=== PATIENT | male | born 1975 | race Caucasian/White ===

== ENCOUNTER 2019-04-01 10:27 | Inpatient (IN) | payer BC, OTHER ==
[~2019-04-01] VITALS: Ht 170.2 cm; Wt 110.7 kg
--- NOTE | ~2019-04-01 | EEG ---
[facility] [place] [address] ELECTROENCEPHALOGRAM Name: CAMMIE ENRIQUEZ Room #: 450-P ADM IN M.R.#: [id number] Admission: 04/01/19 Attend Phys: Chandra Esqueda Discharge: Date of : 79 Report #: [id number] THIS REPORT FOR: //name// CC: AISLINN physician/PCP Isha Li DATE OF SERVICE: 04/02/2019 This patient is being evaluated for seizure. EEG was done by placing the electrode by standard 10-20 system of electrode placement. Both referential and sequential montages were used for recording. Background activity in this patient's EEG is about 8-9 Hz and 30 microvolt. The patient went to sleep that is associated with bilaterally symmetrical sleep spindle and vertex sharp waves. Throughout the record, no active epileptiform activity was noted. IMPRESSION: This patient's EEG is intermixed with theta range slowing on both sides, but no active epileptiform activity was noticed. Thank you very much for this referral. By: [id number] Randall Oden MD /nt
[~2019-04-01 10:27] MED LIST: KEPPRA 500 MG500 M1 PO; METFORMIN HCL500 MG PO; NOHOMEMEDICATIONS; OSELB75 PO; TYLENOL325 MG PO
[2019-04-01 10:36] VITALS: BP 127/69
[2019-04-01] MEDS ORDERED: KEPPRA XR500 MG PO (11:02)
[2019-04-01 11:12] LABS: ABSOLUTE NEUTROPHILS 12.4 thou/uL (1.4-8.2); BASOPHILS 0.4 % (0.0-2.0); EOSINOPHILS 0.1 % (0.0-3.0); HEMATOCRIT 49.1 % (42.0-52.0); HEMOGLOBIN 15.9 gm/dL (14.0-18.0); LYMPHOCYTES 12.4 % (24.0-44.0); MCH 30.7 pg (26.0-34.0); MCHC 32.5 g/dL (28.0-37.0); MCV 94.5 fL (80.0-100.0); MONOCYTES 8.4 % (1.0-8.0); PLATELET COUNT 210 thou/uL (150-400); POLYS 78.7 % (36.0-66.0); RBC 5.19 mil/uL (4.50-6.00); RDW 13.1 % (10.5-14.5); WBC 15.8 thou/uL (4.0-11.0)
[2019-04-01 11:13] LABS: CALCIUM 9.9 mg/dL (8.5-10.1); CREATININE 1.8 mg/dL (0.7-1.3); POTASSIUM 3.5 mmol/L (3.5-5.1)
[2019-04-01 11:15] LABS: URINE BILIRUBIN NEGATIVE (Negative); URINE BLOOD 3+ (Negative); URINE CLARITY CLEAR; URINE COLOR YELLOW; URINE GLUCOSE-RANDOM* 2+ (Negative); URINE KETONES 1+ (Negative); URINE LEUKOCYTES-REFLEX NEGATIVE (Negative); URINE NITRITE-REFLEX NEGATIVE (Negative); URINE PROTEIN (DIPSTICK) 1+ (Negative); URINE SPECIFIC GRAVITY >= 1.030 (1.005-1.035); URINE UROBILINOGEN 0.2 E.U./dl (0.2-1.0)
[2019-04-01 11:18] LABS: ALBUMIN 4.7 g/dL (3.4-5.0); TOTAL BILIRUBIN 0.2 mg/dL (<0.1-1.0); TOTAL PROTEIN 8.5 g/dL (6.4-8.2)
[2019-04-01 12:01] LABS: CASTS None Seen /LPF (None Seen); SQUAMOUS None Seen /LPF (0-3)
[2019-04-01 12:02] LABS: BACTERIA-REFLEX 1-9 Few /HPF (None Seen); CRYSTALS None Seen /LPF (None Seen); URINE RBC 0-2 Rare /HPF (0-2); URINE WBC-REFLEX 0-5 Rare /HPF (0-5)
[2019-04-01 13:46] VITALS: BP 136/91
[2019-04-01 14:25] VITALS: BP 116/71
[2019-04-01 14:41] VITALS: BP 147/87
--- NOTE | 2019-04-01 18:16 | NUR ---
Patient arrived to [address] [place] [address] from ER approx. 1430 this afternoon. Patient arrived on cart with and daughter at bedside. Pt appeared to be very weak and restless/uncomfortable. Tele monitor applied and maintenance fluids started. History discussed with patient and at beside. Isolation precautions in place for influenza; family is cooperative. Seizure precautions in place. Fall precautions in place. Low grade fever identified-tylenol given per orders. When temp rechecked after tylenol admin, temp increased from 99.[address] Bhatt called and said ice packs/cold towels is all we can do at this time. Patient currently using both-will recheck temp later. Family at bedside and supposed to bring keppra bottle to confirm keppra dosage at home. Will continue to monitor.
[2019-04-01 19:11] VITALS: BP 133/80
[2019-04-01 23:53] VITALS: BP 123/72
--- NOTE | 2019-04-02 03:23 | NUR ---
ASSUMED PT CARE AROUND 1900. PT WAS VERY DROWSY UPON INITIAL ASSESSMENT. HE WOULD FOLLOW COMMANDS AND ARROUSE, BUT WAS SLOW TO ANSWER QUESTIONS. WHEN REASSESSED DURING THE NIGHT, PT HAS BEEN MORE EASILY ARROUSABLE. VSS. KEPPRA DOSE INCREASED TO HOME DOSE PER [employer] ORDER. NO SEIZURE ACTIVITY NOTED SO FAR THIS SHIFT. SEIZURE PRECAUTIONS IN PLACE. FALL PRECAUTIONS IN PLACE. PT STILL HAVING SOME CASEY-GRADE FEVERS. WILL CONTINUE TO MONITOR CLOSELY. PROGRESSING SLOWLY TOWARD POC GOALS.
[2019-04-02 04:16] VITALS: BP 134/84
[2019-04-02 07:45] VITALS: BP 103/59
[2019-04-02 11:06] LABS: MAGNESIUM 2.1 mg/dL (1.8-2.4)
--- NOTE | 2019-04-02 11:45 | HC ---
[facility] [place] [address] CONSULTATION Name: CAMMIE ENRIQUEZ Room #: 355-P ADM IN M.R.#: [id number] Admission: 04/01/19 Attend Phys: Isha Li MD Discharge: Date of : 79 Report #: [id number] THIS REPORT FOR: //name// CC: AISLINN physician/PCP Isha Li DATE OF SERVICE: 04/02/2019 HISTORY OF PRESENT ILLNESS: This is a 43-year-old male patient who was evaluated by me for seizures. The patient had multiple seizures yesterday, but he is feeling better today. He has a longstanding history of seizures. He follows up with an epileptologist, Dr. Rey at [facility]. He is on 2500 mg of long-acting Keppra and he takes it once daily. Last seizure was in Liliana or September of the last years and that happened because he has run out of his Keppra. Prior to that, seizure was a few years ago. The patient indicated that he did not have any seizure for a long time until had it in September because of running out of the medication. At one time, he used to be on Dilantin. They changed to Keppra. REVIEW OF SYSTEMS: Indicate that the patient had a question of viral meningitis according to the records. He does have multiple seizures. He is on metformin. He does appear to have kidney dysfunction. This was his relevant 14-point review of system. PAST MEDICAL HISTORY: Positive for seizure, which is long-standing. FAMILY HISTORY: Negative for any early age stroke. SOCIAL HISTORY: He says he does drink and smoke, but "not very often." PHYSICAL EXAMINATION: NEUROLOGIC: The patient's examination indicates he is alert. He is responsive. He can talk. His memory is diminished, but he is still able to remember what month and date is. Cranial nerve examination 2-12 looks unremarkable. His strength, sensation, reflexes and tone is symmetrical. There is no cerebellar sign. I could not look at the patient's fundus. There is no meningeal sign in this patient. CARDIAC: Unremarkable. LUNGS: No respiratory difficulty was noticed. Pulses are palpable. VITAL SIGNS: Blood pressure is 103/59, respirations 24, pulse is 89, temperature is 100. IMPRESSION: It looks like this patient has a prior history of seizure, which is longstanding. His seizures are usually controlled with the medication, but he has a pretty significant decompensation. I suspect that is because of viral illness, but even that is somewhat unusual. As there is some reference to viral [address] [address] CONSULTATION Name: CAMMIE ENRIQUEZ Room #: 355-P [facility] IN ..#: [id number] Admission: 04/01/19 Attend Phys: Isha Li MD Discharge: Date of : 79 Report #: [id number] meningitis in the computer, but the patient does not provide any good history. I will suggest asking ID to see him because his infection needs to be tightly controlled if that was the trigger. I will increase his Keppra to about 3000 mg daily, but presently his kidney function is somewhat abnormal and Keppra is excreted by kidneys, so I will probably leave him on the same dose, but I think we will ultimately adjusted to 3000 mg daily depending upon his EEG. Since there in the pattern of seizures, I will suggest doing an MRI in this patient; although, most likely it is going to be okay. I personally do not think there is any evidence of meningitis in this patient, but because of the prior history and the patient is running temperature. We will ask ID and see what their opinion is on this. Thank you very much for this referral and I discussed that with the patient in detail and subsequently called the patient's and discussed with her in detail. This patient cannot drive for at least 6 months because of the state laws and should take other seizure precautions, which were discussed with him. <ELECTRONICALLY SIGNED> By: Randall Oden MD 04/02/19 [id number] Randall Oden MD /nt
--- NOTE | 2019-04-02 17:01 | NUR ---
ASSUMED PATIENT CARE AT 0700, A/O X4. NO SEIZURE NOTED. UP AD BRIDGETT. LOW GRADE TEMP. PROGRESSING TOWARDS POC GOALS. WILL TRANSFER TO [facility] SOON.
[2019-04-02 17:05] VITALS: BP 122/84
[2019-04-02 20:15] VITALS: BP 139/83
[2019-04-03 06:14] LABS: HEMATOCRIT 43.6 % (42.0-52.0); HEMOGLOBIN 14.6 gm/dL (14.0-18.0); MCH 30.8 pg (26.0-34.0); MCHC 33.4 g/dL (28.0-37.0); MCV 92.1 fL (80.0-100.0); PLATELET COUNT 149 thou/uL (150-400); RBC 4.74 mil/uL (4.50-6.00); WBC 6.1 thou/uL (4.0-11.0)
--- NOTE | 2019-04-03 06:16 | NUR ---
PROGRESS PT A/O X4 , VSS SLIGHT TEMP 100.4 AT BEGINNING OF SHIFT 100.4 HYDROCODONE GIVEN FOR PAIN AND FEVER. WORKED WELL PT ABLE TO SLEEP AFTER. IVF'S INFUSING ORDERED, ANTIBIOTICS ADMINISTERED ORDERED. UP AD BRIDGETT VOIDING QS. CONTINUE POC.
[2019-04-03 06:35] LABS: ALBUMIN 3.6 g/dL (3.4-5.0); CALCIUM 8.8 mg/dL (8.5-10.1); CREATININE 1.2 mg/dL (0.7-1.3); POTASSIUM 3.7 mmol/L (3.5-5.1); TOTAL BILIRUBIN 0.2 mg/dL (<0.1-1.0); TOTAL PROTEIN 7.1 g/dL (6.4-8.2)
[2019-04-03 09:11] LABS: ABSOLUTE NEUTROPHILS 3.4 thou/uL (1.4-8.2); PLATELET ESTIMATE NORMAL
[2019-04-03] MEDS ORDERED: TAMIFLU30 MG PO (10:14)
[2019-04-03 10:39] VITALS: BP 139/83
--- NOTE | 2019-04-03 10:44 | NUR ---
PT UP AD BRIDGETT WITH STEADY BALANCED GAIT. REMAINS AFEBRILE. ISOLATION PRECAUTIONS MAINTAINED. REMAINS ON ROOM AIR, NO NEEDS FOR SUPPLEMENTAL O2. PT DENIES AND PAIN, SOA, N/V.
== END 2019-04-03 11:45 | disposition home or self-care (01) | DRG 100 ==
LOC: ER 10:27 → EROBS 12:49 → 3W 12:49 → 4W 12:49 → 3W 14:23 → 4W 14:25 → 3W 04-02 12:29 → 4W 04-02 17:40
PROVIDERS: Emergency Medicine; Psychiatry & Neurology Neuromuscular Medicine; Specialist; ADMIT Internal Medicine
PROC: 5A09357 Assistance with Respiratory Ventilation, Less than 24 Consecutive Hours, Continuous Positive Airway Pressure (ICD-10-PCS; principal; 2019-04-01)
DX: G40.901 Epilepsy, unspecified, not intractable, with status epilepticus (principal); N17.0 Acute kidney failure with tubular necrosis; M62.82 Rhabdomyolysis; J11.1 Influenza due to unidentified influenza virus with other respiratory manifestations; F17.210 Nicotine dependence, cigarettes, uncomplicated; E11.9 Type 2 diabetes mellitus without complications; E66.9 Obesity, unspecified; Z68.38 Body mass index [BMI] 38.0-38.9, adult; Z79.899 Other long term (current) drug therapy
CPT/HCPCS: 10047; 10879